=== PATIENT | male | born 1970 | race American Indian/Alaskan Native ===

== ENCOUNTER 2017-10-28 18:07 | Inpatient (IN) | payer MEDICAID ==
--- NOTE | 2017-10-28 18:43 | ED PDOC ---
HPI: Psych/Substance Abuse Time Seen by Provider: 10/28/17 18:40 Chief Complaint (Nursing): Psychiatric Evaluation Chief Complaint (Provider): PSYCH EVAL History Per: Patient (47 Y/O MALE H/O ALCOHOL/COCAINE/HEROINE ABUSE HERE WITH COMPLAINT OF SI. STATES HE HAS PLAN OF STABBING SELF/THROWING SELF IN FRONT OF CARS. STATES HISTORY IN PAST OF CUTTING SELF IN NECK.) Past Medical History Reviewed: Historical Data, Nursing Documentation, Vital Signs Vital Signs: Last Vital Signs Temp 98 F 10/28/17 18:10 Pulse 84 10/28/17 18:10 Resp 20 10/28/17 18:10 BP 143/73 10/28/17 18:10 Pulse Ox 98 10/28/17 18:10 - Medical History PMH: Anxiety, Back Problems, Bipolar Disorder, Depression Denies: Chronic Kidney Disease - Family History Family History: States: Unknown Family Hx - Immunization History Hx Tetanus Toxoid Vaccination: Yes Hx Influenza Vaccination: Yes Hx Pneumococcal Vaccination: Yes - Home Medications Home Medications: Ambulatory Orders Medication Instructions Recorded Gabapentin [Neurontin] 1 tab PO TID 08/04/16 celeXA 40 mg PO DAILY 08/04/16 QUEtiapine [Seroquel] 100 mg PO BID 10/28/16 Citalopram [celEXA] 20 mg PO DAILY #30 tab 01/02/17 QUEtiapine [SEROquel] 200 mg PO HS #30 tab 01/02/17 - Allergies Allergies/Adverse Reactions: Allergies Allergy/AdvReac Type Severity Reaction Status Date / Time shellfish derived Allergy SWELLING Verified 10/28/17 18:14 Review of Systems ROS Statement: Except As Marked, All Systems Reviewed And Found Negative Physical Exam - Reviewed Nursing Documentation Reviewed: Yes Vital Signs Reviewed: Yes - Physical Exam Appears: Positive for: Well, Non-toxic, No Acute Distress Head Exam: Positive for: ATRAUMATIC, NORMAL INSPECTION, NORMOCEPHALIC Skin: Positive for: Normal Color, Warm, DRY Eye Exam: Positive for: EOMI, Normal appearance, PERRL ENT: Positive for: Normal ENT Inspection Neck: Positive for: Normal, Painless ROM Cardiovascular/Chest: Positive for: Regular Rate, Rhythm Respiratory: Positive for: CNT, Normal Breath Sounds Gastrointestinal/Abdominal: Positive for: Normal Exam, Bowel Sounds, Soft Back: Positive for: Normal Inspection Extremity: Positive for: Normal ROM Neurologic/Psych: Positive for: Alert, Oriented - Laboratory Results Result Diagrams: 10/28/17 19:00 10/28/17 19:00 - ECG O2 Sat by Pulse Oximetry: 98 - Progress ED Course And Treament: seen by crisis team. d/w Jerry Martinez ADMINISTRATIVE ACCOUNTANT Will be admitted to Dr. Barnhart for suicidal ideation Disposition - Clinical Impression Clinical Impression: Suicidal ideation - Patient ED Disposition Is Patient to be Admitted: Yes - Disposition Disposition Time: 19:33 Condition: FAIR Forms: [employer] ([place]) - Pt Status Changed To: Hospital Disposition Of: Inpatient - Admit Certification Admit to Inpatient:: After my assessment, the patient will require hospitalization for at least two midnights. This is because of the severity of symptoms shown, intensity of services needed, and/or the medical risk in this patient being treated as an outpatient.
[2017-10-28 19:10] LABS: BASO # 0.1 K/uL (0.0-0.2); BASO % 0.7 % (0.0-2.0); EOS # 0.1 K/uL (0.0-0.7); EOS % 1.3 % (0.0-4.0); HEMOGLOBIN 11.5 g/dL (12.0-18.0); LYMPH % 9.5 % (20.0-40.0); MEAN CORPUSCULAR HEMOGLOBIN 28.9 pg (27.0-31.0); MEAN CORPUSCULAR HGB CONC 33.3 g/dL (33.0-37.0); MEAN PLATELET VOLUME 7.6 fl (7.2-11.7); MONO # 0.5 K/uL (0.0-0.8); NEUT # 8.8 K/uL (1.8-7.0); NEUT % 83.5 % (50.0-75.0); NRBC % 0.1 % (0.0-0.0); PLATELET COUNT 283 K/uL (130-400); RBC 3.97 Mil/uL (4.40-5.90); RED CELL DISTRIBUTION WIDTH 12.6 % (11.5-14.5); WHITE BLOOD COUNT 10.6 K/uL (4.8-10.8)
[2017-10-28 19:23] LABS: ALBUMIN 3.7 g/dL (3.5-5.0); ALT/SGPT 48 U/L (21-72); AST/SGOT 48 U/L (17-59); BLOOD UREA NITROGEN 16 mg/dl (9-20); CALCIUM 8.9 mg/dL (8.4-10.2); GFR AFRICAN-AMERICAN > 60; GFR NON-AFRICAN AMERICAN 54
[2017-10-28 19:58] LABS: EOSINOPHIL 2 % (0-7); LYMPHOCYTE 9 % (20-50); MONOCYTE 3 % (0-10); NEUTROPHIL 84 % (42-75); PLATELET ESTIMATE NORMAL (NORMAL); REACTIVE LYMPHOCYTES 2 % (0-0); TOTAL CELLS COUNTED 100
[2017-10-28 20:37] VITALS: O2SAT 95
[2017-10-28 22:23] LABS: URINE BACTERIA RARE (<OCC); URINE BILIRUBIN NEGATIVE (NEGATIVE); URINE BLOOD NEGATIVE (NEGATIVE); URINE CLARITY CLEAR (Clear); URINE COLOR STRAW (YELLOW); URINE GLUCOSE (UA) NEG (Normal); URINE LEUKOCYTE ESTERASE NEG Leu/uL (Negative); URINE PROTEIN NEGATIVE (NEGATIVE); URINE UROBILINOGEN 0.2-1.0 mg/dL (0.2-1.0)
[2017-10-28 22:44] LABS: BARBITURATES, UR NEGATIVE (NEGATIVE); BENZODIAZEPINES, UR NEGATIVE (NEGATIVE)
[2017-10-28 22:45] LABS: OPIATES, UR POSITIVE (NEGATIVE); PHENCYCLIDINE, UR NEGATIVE (NEGATIVE)
[2017-10-28] MEDS ORDERED: Magnesium Hydroxide Susp 30 ml UD PO PRN (23:01)
[2017-10-28] MEDS ORDERED: DiphenhydrAMINE 50 mg/ml Inj IM PRN (23:01)
[2017-10-28] MEDS ORDERED: Alum-Mag Hydrox-Simethicone Susp (30 mL) PO PRN (23:01)
--- NOTE | 2017-10-28 23:20 | PCM.BM ---
<Paulo Coto - Last Filed: 10/28/17 23:19> Treatment Plan Problems - Problems identified on initial assessmt Hopelessness/Helplessness Date Initiated: 10/28/17 Time Initiated: 23:19 Assessment reference: NA Status: Active Treatment assets and liabiliti Patient Assests: good support system, negotiates basic needs Patient Liabilities: live alone, financial problems, poor support system, substance abuse - Milieu Protocol Maintain good personal hygiene: daily Encourage regular showers, daily Remind patient to perform daily oral care, daily Assist patient to perform ADL's Maintain personal safety: every shift Educate patient to report safety concerns to staff, every shift Monitor environment for contraband/sharps Medication safety: Monitor for expected outcome, potential side effects: every shift, Assess barriers to learning: every shift, Assess readiness for medication education: every shift <Priscilla Pierce - Last Filed: 10/30/17 09:45> - Diagnosis (2) Cocaine abuse Status: Acute Interventions: Medication management, Individual and group therapy, Psychoeducation 10/30/17 09:45 (3) Opioid abuse Status: Acute Interventions: Medication management, Individual and group therapy, Psychoeducation 10/30/17 09:45 (4) Depressive disorder Status: Acute Interventions: Medication management, Individual and group therapy, Psychoeducation 10/30/17 09:45 <Vangie Morales - Last Filed: 10/30/17 11:42> Family Contact Family involvement: Famliy/SO not involved Discharge/Continuing Care - Education Needs Education Needs: Patient Medication, Patient Diagnosis/Disease Process, Patient Coping Skills, Patient Community resources, Patient Aftercare Safety Plan - Discharge Discharge Criteria: Tolerates medication w/o severe side effects, Ability to care for self, Reduction of target symptoms Discharge to:: [facility] - Additional Comments 10/30/17 11:38 Pt refused to attend team meeting stating "I don't want too.". Paralegal Instructor (ALIN), spa manager/esthetician, Mendy Martin and attending psychiatrist, Dr. Kari MD met with pt in room 311-1. Pt observed to be lying in bed covered with his blankets. Pt was irritable and loud with staff members. Pt refusing to engage in treatment plan, pt refusing to participate in clinical/activity groups, and pt refusing to comply with prescribed medications. Pt demanding to he discharged form the unit when asked to comply with treatment plan and unit rules and regulations. Pt denied SI and HI. Pt denied AVH. Pt denied any paranoia. - Treatment Team Participation Discussed with Family/SO: No Was Patient/Family/SO present at Treatment Team Meeting: Yes
[2017-10-28 23:32] VITALS: RESP 18
[2017-10-29 08:12] LABS: T4 7.62 ug/dl (5.5-11.0)
[2017-10-29] MEDS: Multivitamin With Minerals Tab PO SCH (08:36)
--- NOTE | 2017-10-29 09:52 | RAD ---
HISTORY: cough COMPARISON: No prior. FINDINGS: LUNGS: No active pulmonary disease. PLEURA: No significant pleural effusion identified, no pneumothorax apparent. CARDIOVASCULAR: Normal. OSSEOUS STRUCTURES: No significant abnormalities. VISUALIZED UPPER ABDOMEN: Normal. OTHER FINDINGS: None. IMPRESSION: No active disease.
--- NOTE | 2017-10-29 14:59 | CARD ---
APPROVED REPORT EKG Measurement Heart [id number] <Conclusion> Normal sinus rhythm Normal ECG
--- NOTE | 2017-10-29 15:25 | PCM.PSYCH ---
Initial Psychiatric Evaluation - Initial Psychiatric Evaluation Chief Complaint (in patient's own words): does not know what happened was feeling stressed and overwhelmed was thinking about harming himself Patient's Reaction to Hospitalization: pt signed in voluntarily History of Present Illness and Precipitating Events: per psychiatric boom worker notes: 47 year old , with 2 children (28 y/0 and 30 y/o), employe, homeless, who presente to the [facility] ED on his own as pt reporting feelings of depression, active suicidal ideation with a plan to jump in front of car/train, and having substance withdrawal symptoms. Pt reported that he has an extensive hx of depresssion and multiple suicide attempts in the past. Pt stated that he is experiencing increased depression, low energy, poor appetite, and decreased in sleep. Pt stated that he has been using drugs and alcohol since age 16. Pt reported that he used Crack/Coccaine, and Heroine 25 to 30 bags, and last use was 5 hours ago. Pt admitted to using alcohol and he stated that he used a lot because he wanted to "end his life." Pt has had about 7 psych admissions as per his own report. Pt was complaint with his medication , but he stopped using his Celexa. 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 Pt admitted to also experiencing Auditory Hallucinations in the past couple of weeks; commanding in nature, telling pt to "kill self." Pt denied "hearing voices" at this time. Pt reported that he had homicidal thoughts towards some natalya on the streets because he was annoying him, but he did not hurt him. At present time, pt denied homicidal ideation. Pt was not observed responding to any internal and external stimuli. Pt's speech was slow and he mumbled at times. Some sleep and appetite disturbances reported as pt stated that he has not had much of an appetite, and he is experiencing some challenges with his sleep patterns. No hx of legal involvement as per pt. Pt was in acute distress at the time of evaluation as he stated that he cannot contract for safety, if he was to return to the streets. Current Medications: Active Medications Generic Name Dose Route Start Last Admin Trade Name Freq PRN Reason Stop Dose Admin Acetaminophen 650 mg 10/28/17 23:01 10/29/17 02:20 Tylenol 325mg Tab PO 650 mg Q4 PRN Administration for pain 4-7 Al Hydrox/Mg Hydrox/Simethicone 30 ml 10/28/17 23:01 Maalox Plus 30 Ml PO Q4 PRN Dyspepsia Clonidine HCl 0.1 mg 10/29/17 01:00 10/29/17 08:35 Catapres PO 11/01/17 01:01 0.1 mg Q8 JHONATAN Administration Diphenhydramine HCl 50 mg 10/28/17 23:01 Benadryl IM Q6 PRN Extrapyramidal S/S Unable PO Diphenhydramine HCl 50 mg 10/28/17 23:01 Benadryl PO Q6 PRN Extrapyramidal Symptoms Diphenhydramine HCl 50 mg 10/28/17 23:01 Benadryl PO HS PRN Sleep Haloperidol 5 mg 10/28/17 23:01 Haldol PO Q4 PRN Agitation Haloperidol Lactate 5 mg 10/28/17 23:01 Haldol IM Q4 PRN Agitation, Unable to Take PO Ibuprofen 800 mg 10/28/17 23:10 Motrin Tab PO 10/31/17 23:10 Q6 PRN Pain, Mild (1-3) Loperamide HCl 2 mg 10/28/17 23:10 Imodium PO Q4 PRN After Loose Bowel Movement Lorazepam 2 mg 10/28/17 23:01 Ativan IM Q4 PRN Anxiety/Agitation,Unable PO Lorazepam 2 mg 10/28/17 23:01 Ativan PO Q4 PRN Anxiety/Agitation Magnesium Hydroxide 30 ml 10/28/17 23:01 Milk Of Magnesia PO HS PRN Constipation Multivitamins/Minerals 1 tab 10/29/17 09:00 10/29/17 08:36 Therapeutic-M Tab PO 1 tab DAILY JHONATAN Administration Past Psychiatric History - Past Psychiatric History History of ETOH/Drug Use: opiate and cocaine intranasal for years on and off History of Family Illness: defers Pertinent Medical Hx (Current Medical&Sleep Prob, Allergies): Allergies Allergy/AdvReac Type Severity Reaction Status Date / Time shellfish derived Allergy SWELLING Verified 10/28/17 18:14 Gabapentin [Neurontin] 1 tab PO TID 08/04/16 celeXA 40 mg PO DAILY 08/04/16 QUEtiapine [Seroquel] 100 mg PO BID 10/28/16 Citalopram [celEXA] 20 mg PO DAILY #30 tab 01/02/17 QUEtiapine [SEROquel] 200 mg PO HS #30 tab 01/02/17 Review of Systems - Psychiatric Psychiatric: Abnormal Sleep Pattern, Anhedonia, Hallucinations, Suicidal Ideation Mental Status Examination - Affect Affect: Broad, Flat - Motor Activity Motor Activity: Calm, Psychomotor Retardation - Reliability in Providing Information Reliability in Providing Information: Fair - Speech Speech: Organized Additional comments: under productive - Mood Mood: Depressed - Formal Thought Process Formal Thought Process: Hallucinations - Hallucinations/Delusions Additional comments: command - Cognitive Functions Orientation: Person, Place, Situation, Time Attention/Concentration: Attentive Judgement: Imparied, as evidence by: Other - Risk Risk: Suicidal - Strength & Assets Inventory Strength & Assets Inventory: Cooperative (substance use ) DSM 5 DX - DSM 5 DSM 5 Diagnosis: 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
--- NOTE | 2017-10-29 20:01 | CP.PCM.CON ---
History of Present Illness - History of Present Illness History of Present Illness: 47 yo male admitted to psyche because of depression and suicidal ideation. Admitted using crack and cocaine and Heroin. Review of Systems - Review of Systems All systems: reviewed and no additional remarkable complaints except (aside from those mentioned above, 12 point system review were negative by me) Past Patient History - Infectious Disease Hx of Infectious Diseases: None - Past Social History Smoking Status: Heavy Smoker > 10 Cigarettes Daily - CARDIAC Hx Cardiac Disorders: No - PULMONARY Hx Tuberculosis: No - NEUROLOGICAL HX Cerebrovascular Accident: No Hx Seizures: No - HEENT Hx HEENT Problems: No Other/Comment: Wears galsses. - RENAL Hx Chronic Kidney Disease: No - ENDOCRINE/METABOLIC Hx Endocrine Disorders: No - HEMATOLOGICAL/ONCOLOGICAL Hx Cancer: No Hx Human Immunodeficiency Virus (HIV): No - INTEGUMENTARY Hx Dermatological Problems: No - MUSCULOSKELETAL/RHEUMATOLOGICAL Hx Musculoskeletal Disorders: Yes - GASTROINTESTINAL Hx Gastrointestinal Disorders: No - GENITOURINARY/GYNECOLOGICAL Hx Sexually Transmitted Disorders: No - PSYCHIATRIC Hx Anxiety: Yes Hx Depression: Yes Hx Substance Use: Yes - SURGICAL HISTORY Hx Surgeries: No - ANESTHESIA Hx Anesthesia: No Hx Anesthesia Reactions: No Meds Allergies/Adverse Reactions: Allergies Allergy/AdvReac Type Severity Reaction Status Date / Time shellfish derived Allergy SWELLING Verified 10/28/17 18:14 - Medications Medications: Current Medications Acetaminophen (Tylenol 325mg Tab) 650 mg PO Q4 PRN PRN Reason: for pain 4-7 Last Admin: 10/29/17 02:20 Dose: 650 mg Al Hydrox/Mg Hydrox/Simethicone (Maalox Plus 30 Ml) 30 ml PO Q4 PRN PRN Reason: Dyspepsia Citalopram Hydrobromide (Celexa) 10 mg PO DAILY [facility] Last Admin: 10/29/17 16:54 Dose: 10 mg Clonidine HCl (Catapres) 0.1 mg PO Q8 JHONATAN Stop: 11/01/17 01:01 Last Admin: 10/29/17 16:51 Dose: 0.1 mg Diphenhydramine HCl (Benadryl) 50 mg IM Q6 PRN PRN Reason: Extrapyramidal S/S Unable PO Diphenhydramine HCl (Benadryl) 50 mg PO Q6 PRN PRN Reason: Extrapyramidal Symptoms Diphenhydramine HCl (Benadryl) 50 mg PO HS PRN PRN Reason: Sleep Haloperidol (Haldol) 5 mg PO Q4 PRN PRN Reason: Agitation Haloperidol Lactate (Haldol) 5 mg IM Q4 PRN PRN Reason: Agitation, Unable to Take PO Ibuprofen (Motrin Tab) 800 mg PO Q6 PRN PRN Reason: Pain, Mild (1-3) Stop: 10/31/17 23:10 Loperamide HCl (Imodium) 2 mg PO Q4 PRN PRN Reason: After Loose Bowel Movement Lorazepam (Ativan) 2 mg IM Q4 PRN PRN Reason: Anxiety/Agitation,Unable PO Lorazepam (Ativan) 2 mg PO Q4 PRN PRN Reason: Anxiety/Agitation Magnesium Hydroxide (Milk Of Magnesia) 30 ml PO HS PRN PRN Reason: Constipation Multivitamins/Minerals (Therapeutic-M Tab) 1 tab PO DAILY [facility] Last Admin: 10/29/17 08:36 Dose: 1 tab Quetiapine Fumarate (Seroquel) 100 mg PO HS [facility] Physical Exam - Constitutional Appears: No Acute Distress - Head Exam Head Exam: ATRAUMATIC - Eye Exam Eye Exam: absent: Scleral icterus - ENT Exam ENT Exam: Mucous Membranes Moist - Neck Exam Neck exam: Negative for: Meningismus - Respiratory Exam Respiratory Exam: absent: Rales, Rhonchi, Wheezes, Respiratory Distress - Cardiovascular Exam Cardiovascular Exam: REGULAR RHYTHM, +S1, +S2 - GI/Abdominal Exam GI & Abdominal Exam: Soft. absent: Tenderness - Rectal Exam Rectal Exam: Deferred - Extremities Exam Extremities exam: Negative for: pedal edema - Back Exam Back exam: NORMAL INSPECTION - Neurological Exam Neurological exam: Alert, Oriented x3 - Psychiatric Exam Psychiatric exam: Normal Affect - Skin Skin Exam: Dry, Intact Results - Vital Signs Recent Vital Signs: Last Vital Signs Temp 97.8 F 10/29/17 15:13 Pulse 59 L 10/29/17 16:51 Resp 18 10/29/17 15:13 BP 104/62 10/29/17 16:51 Pulse Ox 95 10/28/17 22:46 - Labs Result Diagrams: 10/28/17 19:00 10/28/17 19:00 Labs: Laboratory Results - last 24 hr 10/28/17 10/28/17 10/28/17 19:00 22:10 22:10 Neutrophils % (Manual) 84 H Lymphocytes % (Manual) 9 L Reactive Lymphs % 2 H Monocytes % (Manual) 3 Eosinophils % (Manual) 2 Platelet Estimate Normal Triglycerides Cholesterol LDL Cholesterol Direct HDL Cholesterol Thyroxine (T4) TSH 3rd Generation Urine Color Straw Urine Clarity Clear Urine pH 6.0 Ur Specific Cadott 1.009 Urine Protein Negative Urine Glucose (UA) Neg Urine Ketones 20 Urine Blood Negative Urine Nitrate Negative Urine Bilirubin Negative Urine Urobilinogen 0.2-1.0 Ur Leukocyte Esterase Neg Urine RBC (Auto) 1 Urine Microscopic WBC < 1 Urine Bacteria Rare Urine Opiates Screen Positive H Urine Methadone Screen Negative Ur Barbiturates Screen Negative Ur Phencyclidine Scrn Negative Ur Amphetamines Screen Negative U Benzodiazepines Scrn Negative U Oth Cocaine Metabols Positive H U Cannabinoids Screen Negative 10/29/17 06:00 Neutrophils % (Manual) Lymphocytes % (Manual) Reactive Lymphs % Monocytes % (Manual) Eosinophils % (Manual) Platelet Estimate Triglycerides 56 Cholesterol 149 LDL Cholesterol Direct 85 HDL Cholesterol 34 Thyroxine (T4) 7.62 TSH 3rd Generation 0.59 Urine Color Urine Clarity Urine pH Ur Specific Cadott Urine Protein Urine Glucose (UA) Urine Ketones Urine Blood Urine Nitrate Urine Bilirubin Urine Urobilinogen Ur Leukocyte Esterase Urine RBC (Auto) Urine Microscopic WBC Urine Bacteria Urine Opiates Screen Urine Methadone Screen Ur Barbiturates Screen Ur Phencyclidine Scrn Ur Amphetamines Screen U Benzodiazepines Scrn U Oth Cocaine Metabols U Cannabinoids Screen Assessment & Plan (1) Suicidal ideation Status: Acute Comment: psyche is managing (2) Substance abuse Status: Acute Comment: psyche is managing
[2017-10-30 06:20] VITALS: BP 121/73; PULSE 62; TEMP 97.5
[2017-10-30] MEDS: Multivitamin With Minerals Tab PO SCH (08:38)
--- NOTE | 2017-10-30 11:26 | PCM.PYCHDC ---
Mental Status Examination - Mental Status Examination Orientation: Person, Place, Situation, Time Memory: Intact Mood: Neutral Affect: Broad Speech: Appropriate Attention: WNL Concentration: WNL Association: WNL Fund of Knowledge: WNL Formal Thought Process: No Impairment Description of patient's judgement and insight: Fair I/J Psychotic Thoughts and Behaviors: No AH/VH/paranoia/delusions Suicidal Ideation: No Current Homicidal Ideation?: No Discharge Summary - Discharge Note Reason for Hospitalization: As per initial HPI: 47 year old , with 2 children (28 y/0 and 30 y/o), employe, homeless, who presente to the [facility] on his own as pt reporting feelings of depression, active suicidal ideation with a plan to jump in front of car/train, and having substance withdrawal symptoms. Pt reported that he has an extensive hx of depresssion and multiple suicide attempts in the past. Pt stated that he is experiencing increased depression, low energy, poor appetite, and decreased in sleep. Pt stated that he has been using drugs and alcohol since age 16. Pt reported that he used Crack/Coccaine, and Heroine 25 to 30 bags , and last use was 5 hours ago. Pt admitted to using alcohol and he stated that he used a lot because he wanted to "end his life." Pt has had about 7 psych admissions as per his own report. Pt was complaint with his medication , but he stopped using his Celexa. 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 Pt admitted to also experiencing Auditory Hallucinations in the past couple of weeks; commanding in nature, telling pt to "kill self." Pt denied "hearing voices" at this time. Pt reported that he had homicidal thoughts towards some natalya on the streets because he was annoying him, but he did not hurt him. At present time, pt denied homicidal ideation. Pt was not observed responding to any internal and external stimuli. Pt's speech was slow and he mumbled at times. Some sleep and appetite disturbances reported as pt stated that he has not had much of an appetite, and he is experiencing some challenges with his sleep patterns. No hx of legal involvement as per pt. Pt was in acute distress at the time of evaluation as he stated that he cannot contract for safety, if he was to return to the streets. Laboratory Data: Abnormal Lab Results 10/29/17 10/29/17 06:00 06:00 Hemoglobin A1c 5.3 RPR Nonreactive Consultations:: List each consultation separately and include: 1. Reason for request. 2. Findings. 3. Follow-up Consultations: Medicine consult Summary of Hospital Course include:: 1. Description of specific treatment plan utilized for patients during their course of treatmen. 2. Summarize the time- course for resolution of acute symptoms and/or regressed behaviors. 3. Describe issues identified and worked on during hospitalization. 4. Describe medication utilized. 5. Describe medical problems identified and treated. 6. Reassessment of suicide risk Summary of Hospital Course: Patient was admitted to the psychiatry unit. Individual and group therapy were offered. Patient was started on Celexa and Seroquel, but he now states that he is not interested in treatment with medication. Patient is currently demanding to leave, refusing to participate in treatment or groups. He has capacity to make medical decisions at this time. He denies current AH/VH/SI/ HI. Patient will be discharged AMA. Patient wanted to be admitted to the psychiatry unit for secondary gain of housing. Psychoeducation provided on the dangers of substance abuse. Patient told to return to the ED if he actually has suicidal ideation/plan/intent or needs other medical treatment. - Diagnosis (1) Substance induced mood disorder Current Visit: Yes Status: Chronic (2) Cocaine abuse Current Visit: Yes Status: Chronic (3) Opioid abuse Current Visit: Yes Status: Chronic - Final Diagnosis (DSM 5) Condition upon Discharge: STABLE DSM 5: Substance induced mood disorder; cocaine use disorder; opioid use disorder Disposition: AGAINST MEDICAL ADVICE Follow-up Treatment Plan: Patient was admitted to the psychiatry unit. Individual and group therapy were offered. Patient was started on Celexa and Seroquel, but he now states that he is not interested in treatment with medication. Patient is currently demanding to leave, refusing to participate in treatment or groups. He has capacity to make medical decisions at this time. He denies current AH/VH/SI/ HI. Patient will be discharged AMA. Patient wanted to be admitted to the psychiatry unit for secondary gain of housing. Psychoeducation provided on the dangers of substance abuse. Patient told to return to the ED if he actually has suicidal ideation/plan/intent or needs other medical treatment. Patient refuses outpatient psychiatric treatment referral at this time. - Smoking Cessation Smoking Cessation Medication prescribed: No Reason for not providing: Patient declined - Antipsychotic Medications Pt discharged on 2 or more routine antipsychotic medications: No
== END 2017-10-30 11:15 | disposition left against medical advice (07) | DRG 430 ==
LOC: H.ER 18:07 → H.ERHOLD 20:07 → H.STEP 22:58
PROVIDERS: ADMIT Psychiatry & Neurology Psychiatry; ATTEND Psychiatry & Neurology Psychiatry
PROC: GZHZZZZ Group Psychotherapy (ICD-10-PCS; principal; 2017-10-28)
PROC: HZ52ZZZ Individual Psychotherapy for Substance Abuse Treatment, Cognitive-Behavioral (ICD-10-PCS; 2017-10-28)
PROC: GZ58ZZZ Individual Psychotherapy, Cognitive-Behavioral (ICD-10-PCS; 2017-10-29)
DX: F32.3 Major depressive disorder, single episode, severe with psychotic features (principal); F19.94 Other psychoactive substance use, unspecified with psychoactive substance-induced mood disorder; F14.14 Cocaine abuse with cocaine-induced mood disorder; F11.14 Opioid abuse with opioid-induced mood disorder; R45.851 Suicidal ideations; F41.9 Anxiety disorder, unspecified; F17.210 Nicotine dependence, cigarettes, uncomplicated; Z91.5 Personal history of self-harm; Z91.013 Allergy to seafood